=== PATIENT | female | born 1990 | race Caucasian/White ===

== ENCOUNTER 2023-12-02 20:15 | Emergency (ER) | payer MEDICAID ==
[~2023-12-02] VITALS: Ht 175.3 cm; Wt 86.3 kg
[2023-12-02 20:26] VITALS: BP 103/65; RESP 18; O2SAT 98
[2023-12-02 20:33] VITALS: PULSE 76
== END 2023-12-02 23:24 | disposition left against medical advice (07) ==
LOC: ER 20:15 → EDBD 20:15 → ER 23:24
DX: S80.211A Abrasion, right knee, initial encounter (principal); R55 Syncope and collapse; Z53.21 Procedure and treatment not carried out due to patient leaving prior to being seen by health care provider; W01.0XXA Fall on same level from slipping, tripping and stumbling without subsequent striking against object, initial encounter; Y93.89 Activity, other specified; Y92.89 Other specified places as the place of occurrence of the external cause; Y99.8 Other external cause status
CPT/HCPCS: 93005